=== PATIENT | female | born 1975 | race Caucasian/White ===

== ENCOUNTER 2016-04-05 15:34 | Outpatient (CLI) | payer BC ==
[~2016-04-05 15:34] MED LIST: cefTRIAXone 2 GM Vial IVPUSH ONE
[2016-04-05] MEDS: cefTRIAXone 2 GM in Sodium Chloride 0.9% 50 ML IV SCH (15:53)
[2016-04-05 16:50] VITALS: BP 156/78
== END 2016-04-05 16:54 | disposition home or self-care (01) ==
LOC: KA.IVTHER 15:34
PROVIDERS: ATTEND Internal Medicine
DX: L03.119 Cellulitis of unspecified part of limb (principal)
CPT/HCPCS: 96365; J0696; J7050